=== PATIENT | female | born 1970 | race Caucasian/White ===

== ENCOUNTER 2017-10-08 21:05 | Inpatient (IN) ==
--- OUTSIDE RECORDS SUMMARY | 2017-10-08 21:45 | External Medical Summary | Continuity of Care Document ---
:1970 Author Organization [facility] Allergies Active Description Code Type Severity Reaction Onset Reported/ Identified Relationship Clinical to Patient Status Yes No Known 13638 3 N/A N/A Drug 0 Allergies Yes NKDA N/A N/A 03/16/2009 Yes No Known Aller Unknown N/A 09/27/2017 Allergies gy Medications Medication Packaging Start Date Stop Date Route Dosage Sig ORAL 03/27/2014 08/12/2014 ORAL 90 LISINOPRIL daily ORAL 07/13/2014 10/06/2014 ORAL 90 PRAVASTATIN at SODIUM bed-time ORAL 08/10/2014 08/12/2014 ORAL 180 METFORMIN HCL ER once each day ORAL 08/12/2014 05/13/2015 ORAL 90 SERTRALINE HCL daily ORAL 08/12/2014 01/18/2015 ORAL 180 METFORMIN HCL ER once each day ORAL 08/12/2014 01/18/2015 ORAL 90 LISINOPRIL daily ORAL 10/06/2014 02/12/2015 ORAL 90 PRAVASTATIN at SODIUM bed-time ORAL 01/18/2015 04/13/2015 ORAL 180 METFORMIN HCL ER once each day ORAL 01/18/2015 05/13/2015 ORAL 90 LISINOPRIL daily ORAL 02/12/2015 07/08/2015 ORAL 90 PRAVASTATIN at SODIUM bed-time ORAL 04/13/2015 07/19/2015 ORAL 180 METFORMIN HCL ER once each day ORAL 05/13/2015 ORAL 90 SERTRALINE HCL daily ORAL 05/13/2015 08/12/2015 ORAL 90 LISINOPRIL daily Oral 07/08/2015 Oral 90 PRAVASTATIN SODIUM Oral 07/19/2015 10/13/2015 Oral 180 METFORMIN HCL ER Oral 08/12/2015 Oral 90 LISINOPRIL Oral 10/13/2015 Oral 180 METFORMIN HCL ER 12/11/2016 PO 5 mg Prinivil DAILY 02/21/2017 PO 500 mg Glucophage Xr BID 04/09/2017 PO 10 mg Pravachol HS 04/10/2017 PO 10 mg Pravachol DAILY 07/30/2017 PO 100 mg Zoloft DAILY 09/24/2017 PO 10 mg Pravachol DAILY 09/24/2017 PO 500 mg Glucophage Xr DAILY Problems Date Dx Attending Type Code Diagnosis Diagnosed By Coded 02/20/2017 JUSTINA STARRJENNIFER E11.9 Type 2 diabetes JUSTINA STARR, mellitus without JENNIFER complications 02/20/2017 JUSTINA STARR JENNIFER E78.5 Hyperlipidemia, JUSTINA STARR, unspecified JENNIFER Procedures Code [place] [address] COMPUTER AID TAMAYOARABELLA 02/07/2016 DETECTION SCREENING G0202 DIGITAL TAMAYOARABELLA SALAS 02/07/2016 SCREENING MAMMOGRAM G0206 DIGITAL OCTOBER, JERAMY 02/15/2016 UNILAT DX MAMMOGRAM G0206 DIGITAL YARY CARDOSO 09/22/2016 UNILAT DX MAMMOGRAM G0204 DIGITAL TAMAYO ARABELLA 04/11/2017 BILATERAL DX MAMMOGRAM Results Test Result Range L749.2000 - 02/20/17 09:11 NA - Sodium - AMS 139 mEq/L 135-144 Potassium - AMS 4.4 mEq/L 3.5-5.2 Chloride- AMS 108 mEq/L 99-111 CO2 - Carbon Dioxide-AMS 22 mEq/L 22-31 Anion Gap - AMS 9 mEq/L 3-20 BUN - Blood Urea Nitrogen -AMS 12 mg/dL 7-19 Creatinine - AMS 0.63 mg/dL 0.57-1.11 Glomerular Filtration Rate-AMS > 60 mL/min >60 Glucose - AMS 117 mg/dL 70-99 Calcium - AMS 9.2 mg/dL 8.4-10.2 Bilirubin,Total - AMS 0.6 mg/dL 0.2-1.2 Alkaline Phosphatase - AMS 74 U/L 40-150 AST - Aspartate Amino Transfer 22 U/L 5-34 ALT - AMS 26 U/L 0-55 TP - Total Protein - AMS 7.1 g/dL 6.1-7.7 Albumin Level - AMS 4.4 g/dL 3.5-5.0 Globulin - AMS 2.7 g/dL 1.8-4.0 L908.312 - 02/20/17 09:11 Triglycerides - AMS 149 mg/dL 0-149 Cholesterol - AMS 211 mg/dL 0-199 HDL Cholesterol, Direct - AMS 42 mg/dL 40-84 Cardiac Risk - Ratio - AMS 5.0 0.0-5.0 Non-HDL Cholesterol 169 mg/dL 0-159 LLDL-A 139 mg/dL 0-130 LVLDL-A 30 mg/dL 0-28 L750.9150 - 02/20/17 09:11 TSH - Thyroid Stim Horm-AMS 1.21 uIU/mL 0.35-4.94 L750.4775 - 02/20/17 09:11 Hemoglobin A1C - AMS 6.0 % 4.1-5.6 [id number] 125.5 mg/dL NR L902.0475 - 02/20/17 09:11 Microalbumin, Urine Random-AMS <0.5 mg/dL 0.0-1.7 L749.2000 - 09/17/17 11:12 NA - Sodium - AMS 139 mEq/L 135-144 Potassium - AMS 4.3 mEq/L 3.5-5.2 Chloride- AMS 108 mEq/L 99-111 CO2 - Carbon Dioxide-AMS 23 mEq/L 22-31 Anion Gap - AMS 8 mEq/L 3-20 BUN - Blood Urea Nitrogen -AMS 10 mg/dL 7-19 Creatinine - AMS 0.63 mg/dL 0.57-1.11 Glomerular Filtration Rate-AMS > 60 mL/min >60 Glucose - AMS 107 mg/dL 70-99 Calcium - AMS 9.7 mg/dL 8.4-10.2 Bilirubin,Total - AMS 0.7 mg/dL 0.2-1.2 Alkaline Phosphatase - AMS 85 U/L 40-150 AST - Aspartate Amino Transfer 30 U/L 5-34 ALT - AMS 30 U/L 0-55 TP - Total Protein - AMS 7.0 g/dL 6.1-7.7 Albumin Level - AMS 4.4 g/dL 3.5-5.0 Globulin - AMS 2.6 g/dL 1.8-4.0 L908.3136 - 09/17/17 11:12 LLDLD-A 139 mg/dL 0-129 L750.4775 - 09/19/17 16:02 Hemoglobin A1C - AMS 6.1 % 4.1-5.6 [id number] 128.4 mg/dL NR L749.1001 - 10/08/17 16:55 White Blood Count 22.8 K/uL 4.8-10.8 RBC 4.51 10*6/uL 4.00-5.20 Hemoglobin 13.2 g/dL 12.0-16.0 Hematocrit 40.0 % 37.0-47.0 MCV 88.7 fL 82.0-99.0 MCH 29.3 pg 27.0-32.0 MCHC 33.0 g/dL 32.0-36.0 RDW 12.6 % 11.5-14.5 MPV 10.1 fL 8.8-14.8 Platelet Count 368 K/uL 150-400 Immature Granulocytes % 0.9 % 0.0-1.0 Neutrophils % 87 % 51-75 Lymphocytes % 9 % 20-46 Monocytes % 3 % 4-11 Basophils % 0 % 0-2 Eosinophils % 0 % 0-4 Absolute Neutrophils 19.93 10*3/uL 1.90-7.00 Absolute Lymphocytes 1.98 10*3/uL 0.80-3.30 Absolute Monocytes 0.60 10*3/uL 0.30-1.00 Absolute Eosinophils 0.07 10*3/uL 0.00-0.50 Absolute Basophils 0.06 10*3/uL 0.00-0.20 LNRBCA-A 0.0 /100 WBC L908.1510 - 10/08/17 16:55 D-Dimer - AMS 730 ng/mL FEU 0-500 L749.2000 - 10/08/17 16:55 NA - Sodium - AMS 138 mEq/L 135-144 Potassium - AMS 4.3 mEq/L 3.5-5.2 Chloride- AMS 108 mEq/L 99-111 CO2 - Carbon Dioxide-AMS 18 mEq/L 22-31 Anion Gap - AMS 12 mEq/L 3-20 BUN - Blood Urea Nitrogen -AMS 7 mg/dL 7-19 Creatinine - AMS 0.63 mg/dL 0.57-1.11 Glomerular Filtration Rate-AMS > 60 mL/min >60 Glucose - AMS 145 mg/dL 70-99 Calcium - AMS 9.5 mg/dL 8.4-10.2 Bilirubin,Total - AMS 0.9 mg/dL 0.2-1.2 Alkaline Phosphatase - AMS 89 U/L 40-150 AST - Aspartate Amino Transfer 28 U/L 5-34 ALT - AMS 33 U/L 0-55 TP - Total Protein - AMS 6.6 g/dL 6.1-7.7 Albumin Level - AMS 3.9 g/dL 3.5-5.0 Globulin - AMS 2.7 g/dL 1.8-4.0 Encounters ACCT No. Visit Discharge Status Pt. Type Provider Facility Loc./Unit Complaint Date/Time [id number] 04/11/2017 04/11/2017 CLS Outpatient [facility], 09:15:00 23:59:59 [facility] [id number] 02/16/2016 02/16/2016 CLS Outpatient [facility], 14:56:00 23:59:59 [facility] [id number] 02/09/2016 02/09/2016 CLS Outpatient [facility], 13:49:00 23:59:59 [facility] [id number] 02/07/2016 02/07/2016 CLS Outpatient [facility], 09:15:00 23:59:59 [facility] [id number] 02/01/2015 02/01/2015 CLS Outpatient [facility], 09:15:00 23:59:59 [facility] [id number] 04/11/2017 DIS Document 00:00:00 Registration [id number] 09/26/2016 DIS Document 00:00:00 Registration [id number] 02/18/2016 DIS Document 00:00:00 Registration [id number] 02/09/2016 DIS Document 00:00:00 Registration [id number] 07/27/2016 07/27/2016 DIS Outpatient 14:25:32 14:25:32 [id number] 09/27/2017 09/27/2017 DIS Outpatient [facility] , Medical coughing/w [id number] 14:17:00 15:07:00 JENNIFER Fuchs [facility] [id number] 09/19/2017 09/19/2017 DIS Outpatient [facility] , Medical lab per [id number] 15:45:00 16:04:00 JENNIFER Fuchs [facility] [id number] 09/17/2017 09/17/2017 DIS Outpatient [facility] , Medical tip of [id number] 10:28:00 11:18:00 JENNIFER Fuchs [facility] [id number] 02/20/2017 02/20/2017 DIS Outpatient [facility] , Medical DM [id number] 08:22:00 09:25:00 JENNIFER Fuchs [facility] [id number] 10/08/2017 Document [id number] 15:29:00 Registration
[2017-10-08] MEDS ORDERED: DEXTROSE 50% SYRINGE 50ml (1 AMP) IVP PRN (22:08)
[2017-10-08] MEDS ORDERED: MORPHINE SULFATE 2mg INJ IVP PRN (22:09)
[2017-10-08] MEDS ORDERED: HYDROCODONE/APAP 5mg/325mg TABLET PO PRN (22:09)
[2017-10-08] MEDS ORDERED: CEFTRIAXONE 2 GM INJECTION IV SCH (22:15)
[2017-10-08 22:43] VITALS: BMI 38.0
--- NOTE | 2017-10-08 23:17 | History & Physical Report ---
History of Present Illness Date: 10/09/17 Chief complaint: short of breath HPI: This is a 47 y/o female who has a history of DM2. The patient was in her usual state of good health until this past week when she developed congestion and a non productive cough. The patient saw her PcP Dr. Berkowitz who thought she had an early pnemonia. He started her on a zithromax and inhaler. The patient actually improved over the past several days. The patient this am woke up feeling worse with cough that is now productive of a green sputum. She presented to Dr. Berkowitz again today and a CXR suggested an ongoing evolving infiltrate in both lung bases. The patient demonstrated a leukocytosis. Additionally a troponin was elevated. At this time Dr. Berkowitz requested to be admitted to treat a failed outpatient course of antibiotics and to evaluate for a possible PE. Review of Systems Review of systems: no headache, no change n vision, no ear pain, congestion noted. mild to mod short of breath with exertion today. cough productive of colored sputum, chills and sweats, no neck pain, no chest pain, no nausea/vomiting, no change in bm, no focal neuro complaints, no skin rash. 12 point ROS otherwise negative except for outlined above. Past Medical History Medical History: Medical History (Last Reviewed 10/08/17 @ 15:53 by KIRAN Hercules) HTN (hypertension) Hyperlipidemia Type 2 diabetes mellitus without complications Surgical History: NONE Family History: Family History (Last Reviewed 10/08/17 @ 15:53 by KIRAN Hercules) Mother Arthritis Father [facility] Francis's disease High blood pressure Family History Updates: mother alive and has arthritis, father from complications from Shon's disease Family History: As Above - Social History Smoking status: Never smoker Alcohol intake frequency: holidays/special occasions only Housing: house Household members: spouse Current occupational status: employed Current residence: Apartment/Private Home Medications Home Medications Medication Instructions Recorded Confirmed Type Zoloft (sertraline) 100 mg tablet 100 mg PO DAILY #90 tab 07/30/17 10/08/17 Rx Glucophage XR (metformin ER) 500 1,000 mg PO DAILY #180 tab 09/24/17 10/08/17 Rx mg tablet, 24 hr pravastatin 10 mg tablet 10 mg PO DAILY #90 tab 09/24/17 10/08/17 Rx Budesonide/Formoterol Fumarate 2 puff INH BID 10/08/17 10/08/17 History [Symbicort 160-4.5 Mcg Inhaler] Levaquin (levofloxacin) 750 mg 750 mg PO DAILY 7 Days #7 tab 10/08/17 10/08/17 Rx tablet Allergies Allergy/AdvReac Type Severity Reaction Status Date / Time No Known Allergies Allergy Verified 10/08/17 15:51 Exam Telemetry Rhythm: Sinus Rhythm Height/Weight/BMI: Height 1.65 m Weight 103.8 kg Body Mass Index 38.0 - Constitutional Present: mild distress, well nourished, obese, cooperative - Routine HEENT Exam Head: Present: normocephalic, atraumatic Eye: Present: EOMI, conjunctivae pink ENT: Present: mucous membranes moist - Routine Neck Exam Present: supple, full ROM - Routine Respiratory Exam Comments: rhocnhi in both lung bases, not necessarily clear with cough - Routine Cardiovascular Exam Present: RRR, no murmur - Routine Abdominal Exam Present: soft, non distended, non tender - Routine Extremities Exam Present: no edema, non tender, full ROM - Routine Back/Spine/Pelvis Exam Back/Spine: Present: full ROM - Routine Skin Exam Present: intact - Routine Neurological Exam Present: alert, oriented X3, moving all extremities, normal tone, vision grossly intact. Absent: motor deficit, altered mental status - Routine Psychiatric Exam Present: normal affect, normal thought process Results - Labs CBC & Chem 7: 10/08/17 22:26 10/08/17 22:26 Labs: labs reviewed above and will be discussed in detail. CXR outside 2 view with bilateral basilar potential infiltrate CT PE pending Assessment and Plan (1) Community acquired pneumonia Current visit: Yes Status: Acute (2) Dyslipidemia Current visit: Yes Status: Acute (3) DM2 (diabetes mellitus, type 2) Current visit: Yes Status: Acute Assessment and Plan: 1. CAP acute POA: on zithromax. initially intended rocephin, zithromax as there is definitely an atypical component to this. Will wait for CT results and make further considerations after than. Option is to change to IV levaquin. Cx ordered. 2. elevated dimer acute POA: CT to exclude clot. further opinions after CT A of chest done 3. dM2 chronic POA: correctional plan 4. dyslipidemia chronic POA: statin. KIRA Assessment Community acquired pneumonia failing outpatient treatment Hypoxia Leukocytosis Elevated D-Dimer - CTA without evidence for PE Type II DM HTN HDL Obesity with BMI 37.9 DVT Prophylaxis: SCD's, Lovenox GI Prophylaxis: Protonix Resuscitation Status: Full Code - Time spent with patient Time with patient PN: 30 minutes - Physician Narrative Physician: Morgan Jacinto MD Narrative: Date: 10/09/17 Time: 1345 Have independently interviewed and examined pt. Chart reviewed. Reviewed above note and concur. CC: Increase cough/congestion and difficulty breathing. HPI: 47 y/o female with Type II DM made direct admit to [facility] at request of Dr Berkowitz secondary to pneumonia failing outpatient treatment and concern for PE. Was seen in clinic on 09/27 with cough, wheezing, and SOA. Started on Z-Pack and inhaled steroids. Initially did start to make improvement-breathing much easier and less congested. Woke up on 10/08 at about 3am with SOA. [place] like she could not take a deep breath. Increasing cough and congestion. Low grade fever. Went to work that morning, but once when home at noon for lunch felt too ill to return to work. Got in to see Dr Berkowitz. CXR and lab done. Was started on oral Levaquin 750mg daily (did take one dose on 10/08). Chest x-ray in clinic looked suspicious for pneumonia. That evening received call from Dr Berkowitz that WBC very elevated at 22.8 and D-Dimer elevated. With these finding, Dr Berkowitz recommended hospitalization. Patient not having palpitation or chest pressure. Very congested to chest, but not able to mobilize sputum. Increased nasal congestion and drainage. No nausea, but appetite very decreased for the last 2 weeks; has been able to keep liquids in. Urinating well. No rashes. No myalgias, but very tire and fatigued. PHMx: Type II DM, HTN, HDL, Obesity. No surgical hx. ALL: NKDA MEDS: see mar SHx: x 25 years. No smoke, rare ETOH. Woo PCP FHx: Father with St. Francis's, also had HTN. Mother living and active, does have OA. ROS: as in HPI; remainder of 10 point ROS discussed with patient and neg. Exam GEN: [id number] Awake and alert HEENT: NC/AT PERRLA EOMI MMM Neck: supple, midline, no tracheal deviation CV: regular without murmur Lungs: Coarse breath sounds bilaterally. Rhonchi. Good air movement. No distress on RA. AB: soft NT/ND BS present EXT: No c/c/e. Skin: warm and dry Neuro: CN II-XII intact, no focal deficits Psych: awake alert appropriate, thought linear MS: normal muscle mass/tone of upper and lower ext Lab: Reviewed CTA: reviewed Assessment Community acquired pneumonia failing outpatient treatment Hypoxia Leukocytosis Elevated D-Dimer - CTA without evidence for PE Type II DM HTN HDL Obesity Plan Inpatient admission for treatment of pneumonia failing outpatient therapy. Anticipate greater than 2 midnights of care needed. Ceftriaxone 1g IV daily along with azithromycin 500mg IV daily for antimicrobial coverage. Supplemental O2 to help maintain saturations. Sputum for gram stain and c/s. Lovenox and SCD for DVT prevention. Monitor blood sugars. Care to return to Dr Berkowitz at time of discharge from [facility]. Hospital Course Summary Disclaimer: The visit summary below is not to be considered part of the above Progress Note. Hospital Course: 10/08/17 Admission Inpatient admission for treatment of pneumonia failing outpatient therapy. Anticipate greater than 2 midnights of care needed. Ceftriaxone 1g IV daily along with azithromycin 500mg IV daily for antimicrobial coverage. Supplemental O2 to help maintain saturations. Sputum for gram stain and c/s. Lovenox and SCD for DVT prevention. Monitor blood sugars. Care to return to Dr Berkowitz at time of discharge from [facility]. 10/09/17 Notes increase cough/congestion without sputum. Sats low normal on RA, needing O2 at 1L to help. Start 1/2NS at 75cc/hr for renal protection due to IV contrast. Will need to hold on restarting metformin. Acapella QID to help loosen secretions. Mucinex DM routinely to help decrease cough/congestion. Ricola prn. Nasal saline QID to decrease nasal congestion. Recheck CBC in am due to pneumonia and leukocytosis. Will recheck BMP in am secondary to DM and recent IV dye.
[2017-10-08] MEDS ORDERED: IOHEXOL 350mg/ml 75ml INJECTION ONE (23:18)
[2017-10-08] MEDS ORDERED: SALINE FLUSH 10ml SYRINGE ONE (23:18)
[2017-10-08] MEDS: ENOXAPARIN 40 MG/0.4 ML INJECTION SQ SCH (23:24)
[2017-10-09] MEDS: AZITHROMYCIN IV 500 MG in NS 250ml 250 ML IV SCH ×2 (01:39→22:40)
[2017-10-09] MEDS: INSULIN ASPART 100unit/ml INJECTION SQ PRN (07:39)
[2017-10-09] MEDS: PANTOPRAZOLE 40 MG INJECTION IVP SCH (10:15)
[2017-10-09] MEDS: SALINE FLUSH 10ml SYRINGE IV PRN ×2 (10:16→13:58)
[2017-10-09] MEDS: ENOXAPARIN 40 MG/0.4 ML INJECTION SQ SCH (10:16)
--- NOTE | 2017-10-09 10:39 | CT Scan Report ---
Indication: resp sx and elevated dimer PROCEDURE: CT angio pulm emboli: Encounter: Initial Comparison: None Technique: Axial CT pulmonary angiographic phase images were performed through the chest after the administration of intravenous contrast. Coronal and Sagittal MIP reconstructed images were created and reviewed. Automated Exposure Control and Iterative Reconstruction dose reducing techniques were utilized. Contrast: Omnipaque 350 70 mL Findings: Pulmonary arteries: Exam is diagnostic to the segmental pulmonary arterial level. No filling defects identified to confirm a pulmonary embolus. Subsegmental vessels cannot be well evaluated due to contrast bolus. Other findings: Scattered groundglass opacity seen throughout both lungs with a seemingly randomly distributed in. Small areas of fine nodularity also seen in the lower lobes. No lobar consolidation. No pleural effusion or pneumothorax. The central airways are patent. No axillary adenopathy. Enlarged right paratracheal nodes may be reactive. The largest on image #26 measures 1.5 cm in short axis. Heart size is normal. No pericardial effusion. The upper abdomen shows no acute findings. Impression: 1. No pulmonary embolus. 2. Multifocal groundglass opacities throughout the lungs could be due to atypical/viral pneumonia. Other etiologies would include edema, drug reaction, pulmonary vasculitis/hemorrhage and hypersensitivity pneumonitis. .
[2017-10-09] MEDS ORDERED: ONDANSETRON 4 MG/2 ML INJECTION IVP PRN (12:06)
[2017-10-09] MEDS ORDERED: BISACODYL 10 MG SUPPOSITORY RECTALLY PRN (12:07)
[2017-10-09] MEDS ORDERED: MENTHOL COUGH DROPS (RICOLA) MM PRN (13:42)
[2017-10-09] MEDS: GUAIFENESIN/D-METHORPHAN 600mg/30mg TABLET PO SCH ×2 (13:58→21:36)
[2017-10-09] MEDS: 1/2 NS 1,000 ML IV SCH (13:59)
[2017-10-09] MEDS: ACETAMINOPHEN 325 MG TABLET PO PRN (18:16)
[2017-10-09] MEDS: PRAVASTATIN 10 MG TABLET PO SCH (21:36)
[2017-10-09] MEDS: CEFTRIAXONE 1 G in NS 100 ML IV SCH (21:40)
[2017-10-10] MEDS: INSULIN ASPART 100unit/ml INJECTION SQ PRN ×2 (00:13→10:36)
[2017-10-10] MEDS: 1/2 NS 1,000 ML IV SCH (05:52)
[2017-10-10] MEDS: PANTOPRAZOLE 40 MG INJECTION IVP SCH (09:44)
[2017-10-10] MEDS: SERTRALINE 100 MG TABLET PO SCH (09:44)
[2017-10-10] MEDS: GUAIFENESIN/D-METHORPHAN 600mg/30mg TABLET PO SCH ×2 (09:44→20:56)
[2017-10-10] MEDS: ENOXAPARIN 40 MG/0.4 ML INJECTION SQ SCH (09:45)
--- NOTE | 2017-10-10 10:01 | Progress Note ---
- Date 10/10/17 Subjective: F/U: Pneumonia, Leukocytosis, Hypoxia Feeling better-less washed out. Oral drive increasing-feels more like eating, less upset to stomach and nauseated. Still with cough, starting to move secretions. No chest pain with coughing. No f/c. Not had stool. Objective Vital signs: Temperature 98 F 10/10/17 07:35 Pulse Rate 67 10/10/17 07:35 Respiratory Rate 20 10/10/17 07:35 Blood Pressure 107/58 10/10/17 07:35 Pulse Oximetry 93 10/10/17 08:15 Height/Weight/BMI: Height 1.65 m Weight 104.2 kg Body Mass Index 38.0 - Constitutional Present: well nourished, well developed, obese, cooperative - Routine HEENT Exam Head: Present: normocephalic, atraumatic Eye: Present: EOMI, PERRL ENT: Present: mucous membranes moist - Routine Respiratory Exam Present: decreased breath sounds, rhonchi - Routine Cardiovascular Exam Present: RRR, no murmur - Routine Abdominal Exam Present: soft, normoactive bowel sounds, non distended, non tender - Routine Extremities Exam Present: no edema, pulses intact. Absent: cyanosis, clubbing - Routine Musculoskeletal Exam Musculoskeletal: Present: no clubbing or cyanosis, normal strength - Routine Skin Exam Present: intact, dry, warm - Routine Neurological Exam Present: alert, oriented X3, CN II-XII intact, vision grossly intact, hearing grossly intact, normal speech. Absent: motor deficit, altered mental status - Routine Psychiatric Exam Present: normal affect, normal thought process, cooperative, good insight, good judgment. Absent: anxious, agitated Results - Labs CBC & Chem 7: 10/10/17 04:25 10/09/17 22:20 Microbiology Results: Microbiology 10/10/17 06:36 Sputum, Expectorated Gram Stain - Final 10/10/17 06:36 Sputum, Expectorated Sputum Culture - Preliminary Culture Initiated - Results Pending Assessment and Plan (1) Community acquired pneumonia Current visit: Yes Status: Acute (2) Dyslipidemia Current visit: Yes Status: Acute (3) DM2 (diabetes mellitus, type 2) Current visit: Yes Status: Acute Assessment and Plan: Assessment Community acquired pneumonia failing outpatient treatment Hypoxia Leukocytosis Elevated D-Dimer - CTA without evidence for PE Type II DM HTN HDL Obesity with BMI 37.9 Plan WBC improved. Still needing O2. Starting to mobilize sputum. Can D/C IVF as taking oral well. Wean O2. Encourage ambulation. Possible discharge to home later today if O2 need improve. Case discussed with nursing and patient's . Time spent with patient care 25 minutes. DVT Prophylaxis: SCD's, Lovenox Resuscitation Status: Full Code - Physician Narrative Physician: Morgan Jacinto MD Narrative: Date: 10/10/17 Time: 956 Hospital Course Summary Disclaimer: The visit summary below is not to be considered part of the above Progress Note. Hospital Course: 10/08/17 Admission Inpatient admission for treatment of pneumonia failing outpatient therapy. Anticipate greater than 2 midnights of care needed. Ceftriaxone 1g IV daily along with azithromycin 500mg IV daily for antimicrobial coverage. Supplemental O2 to help maintain saturations. Sputum for gram stain and c/s. Lovenox and SCD for DVT prevention. Monitor blood sugars. Care to return to Dr Berkowitz at time of discharge from [facility]. 10/09/17 Notes increase cough/congestion without sputum. Sats low normal on RA, needing O2 at 1L to help. Start 1/2NS at 75cc/hr for renal protection due to IV contrast. Will need to hold on restarting metformin. Acapella QID to help loosen secretions. Mucinex DM routinely to help decrease cough/congestion. Ricola prn. Nasal saline QID to decrease nasal congestion. Recheck CBC in am due to pneumonia and leukocytosis. Will recheck BMP in am secondary to DM and recent IV dye. 10/10/17 WBC improved. Still needing O2. Starting to mobilize sputum. Can D/C IVF as taking oral well. Wean O2. Encourage ambulation. Possible discharge to home later today if O2 need improve.
[2017-10-10] MEDS: SALINE FLUSH 10ml SYRINGE IV PRN ×2 (10:37→22:04)
[2017-10-10] MEDS: ACETAMINOPHEN 325 MG TABLET PO PRN (13:25)
[2017-10-10] MEDS: PRAVASTATIN 10 MG TABLET PO SCH (20:56)
[2017-10-10] MEDS: CEFTRIAXONE 1 G in NS 100 ML IV SCH (22:04)
[2017-10-10] MEDS: AZITHROMYCIN IV 500 MG in NS 250ml 250 ML IV SCH (22:37)
[2017-10-11 07:53] VITALS: BP 110/69; PULSE 74; RESP 22; TEMP 96.9; O2SAT 91
[2017-10-11] MEDS: ENOXAPARIN 40 MG/0.4 ML INJECTION SQ SCH (09:11)
[2017-10-11] MEDS: PANTOPRAZOLE 40 MG INJECTION IVP SCH (09:12)
[2017-10-11] MEDS: GUAIFENESIN/D-METHORPHAN 600mg/30mg TABLET PO SCH (09:13)
[2017-10-11] MEDS: SERTRALINE 100 MG TABLET PO SCH (09:13)
[2017-10-11] MEDS ORDERED: LEVOFLOXACIN 750 MG TABLET PO ONE (11:20)
--- NOTE | 2017-10-11 11:21 | Progress Note ---
- Date 10/11/17 Subjective: F/U: Pneumonia, Leukocytosis, Hypoxia Doing better today. Breathing easier. Maintaining saturation well - did not need O2 overnight (on O2 monitor). Moving more. Eating well. Stools moving. Urinating well. No f/c. Feels ready to go home. Objective Vital signs: Temperature 96.9 F 10/11/17 07:45 Pulse Rate 74 10/11/17 07:45 Respiratory Rate 22 10/11/17 07:45 Blood Pressure 110/69 10/11/17 07:45 Pulse Oximetry 91 10/11/17 07:45 Height/Weight/BMI: Height 1.65 m Weight 104.3 kg Body Mass Index 38.0 - Constitutional Present: no acute distress, well nourished, well developed, obese, cooperative - Routine HEENT Exam Head: Present: normocephalic, atraumatic Eye: Present: EOMI, PERRL, normal accommodation. Absent: nystagmus ENT: Present: mucous membranes moist - Routine Respiratory Exam Present: CTA bilaterally. Absent: rales, respiratory distress, rhonchi, stridor , wheezes, crackles - Routine Cardiovascular Exam Present: RRR, no murmur - Routine Abdominal Exam Present: soft, normoactive bowel sounds, non distended, non tender. Absent: guarding - Routine Extremities Exam Present: no edema, pulses intact. Absent: cyanosis, clubbing - Routine Musculoskeletal Exam Musculoskeletal: Present: no clubbing or cyanosis, normal strength - Routine Skin Exam Present: dry, warm, normal turgor - Routine Neurological Exam Present: alert, oriented X3, CN II-XII intact, moving all extremities, vision grossly intact, hearing grossly intact, normal speech. Absent: motor deficit, altered mental status - Routine Psychiatric Exam Present: normal affect, normal thought process, cooperative, good insight, good judgment Results - Labs CBC & Chem 7: 10/10/17 04:25 10/09/17 22:20 Microbiology Results: Microbiology 10/10/17 06:36 Sputum, Expectorated Gram Stain - Final 10/10/17 06:36 Sputum, Expectorated Sputum Culture - Preliminary Assessment and Plan (1) Community acquired pneumonia Current visit: Yes Status: Acute (2) Dyslipidemia Current visit: Yes Status: Acute (3) DM2 (diabetes mellitus, type 2) Current visit: Yes Status: Acute Assessment and Plan: Assessment Community acquired pneumonia failing outpatient treatment Hypoxia Leukocytosis Elevated D-Dimer - CTA without evidence for PE Type II DM HTN HDL Obesity with BMI 37.9 Plan Clinically improved. Breathing well on RA. Lungs sounding much less congested. No f/c. Eating well. Will discharge to home in stable condition. Continue levofloxacin 750mg daily as initiated by Dr Berkowitz. Recommend Mucinex DM BID for 1 week, then as needed for cough and congestion. Acapella QID for 1 week, then PRN. May return to work on Sunday10/15/17 (Half day on the ). Increase activities as able. F/U with Dr Berkowitz in 1 week - recommend repeating CXR at that time to document clearing of infiltrate. Potentially can take 2-6 weeks for infiltrate to completely clear. If respiratory symptoms persist after levofloxacin, consider doxycycline 100mg BIDWM for 10 days. See orders for details. Case discussed with nursing and patient's . Time spent with patient care 25 minutes. DVT Prophylaxis: SCD's, Lovenox Resuscitation Status: Full Code - Physician Narrative Narrative: Date: 10/11/17 Time: 1118 Hospital Course Summary Disclaimer: The visit summary below is not to be considered part of the above Progress Note. Hospital Course: 10/08/17 Admission Inpatient admission for treatment of pneumonia failing outpatient therapy. Anticipate greater than 2 midnights of care needed. Ceftriaxone 1g IV daily along with azithromycin 500mg IV daily for antimicrobial coverage. Supplemental O2 to help maintain saturations. Sputum for gram stain and c/s. Lovenox and SCD for DVT prevention. Monitor blood sugars. Care to return to Dr Berkowitz at time of discharge from [facility] [place]. 10/09/17 Notes increase cough/congestion without sputum. Sats low normal on RA, needing O2 at 1L to help. Start 1/2NS at 75cc/hr for renal protection due to IV contrast. Will need to hold on restarting metformin. Acapella QID to help loosen secretions. Mucinex DM routinely to help decrease cough/congestion. Ricola prn. Nasal saline QID to decrease nasal congestion. Recheck CBC in am due to pneumonia and leukocytosis. Will recheck BMP in am secondary to DM and recent IV dye. 10/10/17 WBC improved. Still needing O2. Starting to mobilize sputum. Can D/C IVF as taking oral well. Wean O2. Encourage ambulation. 10/11/17 Clinically improved. Breathing well on RA. Lungs sounding much less congested. No f/c. Eating well. Will discharge to home in stable condition. Continue levofloxacin 750mg daily as initiated by Dr Berkowitz. Recommend Mucinex DM BID for 1 week, then as needed for cough and congestion. Acapella QID for 1 week, then PRN. May return to work on Sunday10/15/17 (Half day on the ). Increase activities as able. F/U with Dr Berkowitz in 1 week - recommend repeating CXR at that time to document clearing of infiltrate. Potentially can take 2-6 weeks for infiltrate to completely clear. If respiratory symptoms persist after levofloxacin, consider doxycycline 100mg BIDWM for 10 days. See orders for details.
--- NOTE | 2017-10-11 11:44 | Discharge Summary ---
Discharge Information Date of admission: 10/08/17 21:38 Anticipated date of discharge: 10/11/17 Attending Physician: Morgan Jacinto MD Primary care physician: Eliud Berkowitz DO - Discharge Diagnosis (1) Community acquired pneumonia Status: Acute (2) Dyslipidemia Status: Acute (3) DM2 (diabetes mellitus, type 2) Status: Acute Discharge diagnosis Community acquired pneumonia failing outpatient treatment Associated conditions and complications Hypoxia Leukocytosis Elevated D-Dimer - CTA without evidence for PE Type II DM HTN HDL Obesity with BMI 37.9 - Laboratory Labs: Admit Lab 10/08/17 22:26 WBC 14.9 H Hgb 13.0 Hct 38.5 MCV 87.9 Plt Count 329 Admit Lab 10/08/17 22:26 Sodium 140 Potassium 3.7 Chloride 105 Carbon Dioxide 23 Anion Gap 12 BUN 8.0 Creatinine 0.5 L GFR Calculation 133 BUN/Creatinine Ratio 16 Glucose 147 H Calculated Osmolality 270 Calcium 9.3 10/10/17 04:25 10/09/17 22:20 - Microbiology Microbiology 10/10/17 06:36 Sputum, Expectorated Gram Stain - Final 10/10/17 06:36 Sputum, Expectorated Sputum Culture - Preliminary - Radiology Radiology: Date of Exam: 10/09/17 Type of Exam: CT angio pulm emboli Findings: Pulmonary arteries: Exam is diagnostic to the segmental pulmonary arterial level. No filling defects identified to confirm a pulmonary embolus. Subsegmental vessels cannot be well evaluated due to contrast bolus. Other findings: Scattered groundglass opacity seen throughout both lungs with a seemingly randomly distributed in. Small areas of fine nodularity also seen in the lower lobes. No lobar consolidation. No pleural effusion or pneumothorax. The central airways are patent. No axillary adenopathy. Enlarged right paratracheal nodes may be reactive. The largest on image #26 measures 1.5 cm in short axis. Heart size is normal. No pericardial effusion. The upper abdomen shows no acute findings. Impression: 1. No pulmonary embolus. 2. Multifocal groundglass opacities throughout the lungs could be due to atypical/viral pneumonia. Other etiologies would include edema, drug reaction, pulmonary vasculitis/hemorrhage and hypersensitivity pneumonitis. History of Present Illness HPI: This is a 47 y/o female who has a history of DM2. The patient was in her usual state of good health until this past week when she developed congestion and a non productive cough. The patient saw her PcP Dr. Berkowitz who thought she had an early pnemonia. He started her on azithromycin and inhaler. The patient actually improved over the past several days. The patient this am woke up feeling worse with cough that is now productive of a green sputum. She presented to Dr. Berkowitz again today and a CXR suggested an ongoing evolving infiltrate in both lung bases. The patient demonstrated a leukocytosis. Additionally a D-Dimer was elevated. At this time Dr. Berkowitz requested to be admitted to treat a failed outpatient course of antibiotics and to evaluate for a possible PE. For complete details of the H&P refer to that document. Objective Vital signs: Temperature 96.9 F 10/11/17 07:45 Pulse Rate 74 10/11/17 07:45 Respiratory Rate 22 10/11/17 07:45 Blood Pressure 110/69 10/11/17 07:45 Pulse Oximetry 91 10/11/17 07:45 Height/Weight/BMI: Height 1.65 m Weight 104.3 kg Body Mass Index 38.0 Hospital Course This is a general summary of the patient's hospital course. For more details refer to the complete medical record. Hospital course: 10/08/17 Admission Inpatient admission for treatment of pneumonia failing outpatient therapy. Anticipate greater than 2 midnights of care needed. Ceftriaxone 1g IV daily along with azithromycin 500mg IV daily for antimicrobial coverage. Supplemental O2 to help maintain saturations. Sputum for gram stain and c/s. Lovenox and SCD for DVT prevention. Monitor blood sugars. Care to return to Dr Berkowitz at time of discharge from [facility] [place]. 10/09/17 Notes increase cough/congestion without sputum. Sats low normal on RA, needing O2 at 1L to help. Start 1/2NS at 75cc/hr for renal protection due to IV contrast. Will need to hold on restarting metformin. Acapella QID to help loosen secretions. Mucinex DM routinely to help decrease cough/congestion. Ricola prn. Nasal saline QID to decrease nasal congestion. Recheck CBC in am due to pneumonia and leukocytosis. Will recheck BMP in am secondary to DM and recent IV dye. 10/10/17 WBC improved. Still needing O2. Starting to mobilize sputum. Can D/C IVF as taking oral well. Wean O2. Encourage ambulation. 10/11/17 Discharge Clinically improved. Breathing well on RA. Lungs sounding much less congested. No f/c. Eating well. Will discharge to home in stable condition. Continue levofloxacin 750mg daily as initiated by Dr Berkowitz. Recommend Mucinex DM BID for 1 week, then as needed for cough and congestion. Acapella QID for 1 week, then PRN. May return to work on Sunday10/15/17 (Half day on the ). Increase activities as able. F/U with Dr Berkowitz in 1 week - recommend repeating CXR at that time to document clearing of infiltrate. Potentially can take 2-6 weeks for infiltrate to completely clear. If respiratory symptoms persist after levofloxacin, consider doxycycline 100mg BIDWM for 10 days. See orders for details. Time spent with patient: discharge greater than 30 minutes Resuscitation Status: Full Code Discharge Plan - Discharge Disposition Discharge Date: 10/11/17 Disposition: 01 Discharged Home, Self-Care *Condition: Stable Reason For Visit (Visit label in EMR): community aquired pneumonia - Discharge Medications *Discharge Medications: New Guaifenesin/Dm [Mucinex Dm] 1 tab PO BID tab Continue Budesonide/Formoterol Fumarate [Symbicort 160-4.5 Mcg Inhaler] 2 puff INH BID Zoloft (sertraline) 100 mg tablet 100 mg PO DAILY #90 tab Glucophage XR (metformin ER) 500 mg tablet, 24 hr 1,000 mg PO DAILY #180 tab Levaquin (levofloxacin) 750 mg tablet 750 mg PO DAILY 7 Days #7 tab Changed Pravastatin [Pravachol] 10 mg PO HS #90 tab - Discharge Packet/Instructions *Diet: 2000 KCAL ADA *Activity: Increase as tolerated. May return to work on 10/15/17 (Half day of the ). *Pain Management/Treatment: Continue prior home pain medications. *Wound Care: N/A Additional Instructions: Use Acapella 4 times a day for 1 week to decrease congestion, may use as needed after 1 week. Use Mucinex DM twice a day for 1 week to decrease cough/congestion, then as needed. OTC cough medications okay. Yogurt can help promote bowel regularity with antibiotic use. Monitor for oral thrush (yeast) - white spots in mouth. Mouth wash routinely while on antibiotics can help. May start home Levaguin tomorrow. Safe to restart metfromin. *Expected Signs/Symptoms: Improvement of breathing. Less cough and congestion. *Notify Physician if: Temp >100.2. Increasing cough/congestion. Uncontrolled diarrhea. *During Business Hours Contact: Dr Berkowitz *After Business Hours Contact: Contact [facility] [place] and have Dr Berkowitz or his covering provider contact. *Pending Lab/Results: No Pending Lab - Referrals/Follow Up *Referrals/Follow Up: Eliud Berkowitz DO [Primary Care Provider] - 1 Week (Hospital follow up for pneumonia. Recommend rechecking CXR. ) - Patient Handouts Patient Handouts: Community Acquired Pneumonia (GEN) - Dismissal Complete Discharge Instructions are:: Complete Physician Narrative - Narrative Physician: Morgan Jacinto MD Attestation Narrative: Date: 10/11/17 Time: 1141 I have independently interviewed and examined patient prior to discharge. See my progress note for details. Medically stable for discharge to home.
--- NOTE | 2017-10-11 11:51 | Work/School Release ---
Work/School Release - Date Date: 10/11/17 - Work Release Excused for:: Alexa Schroeder was hospitalized at [facility] from October 08 until October 11, 2017. She may return to work on SundayOctober 15. Recommend working half day on Sunday.
== END 2017-10-11 13:10 | disposition home or self-care (01) | DRG 195 ==
LOC: MED 21:38
PROVIDERS: ADMIT Emergency Medicine; ATTEND Hospitalist